=== PATIENT | female | born 1975 | race Caucasian/White ===

== ENCOUNTER → 2023-09-22 08:48 | Outpatient (REF) | payer OTHER, SELFPAY ==
[2023-09-22 10:42] LABS: % Basophils 0.6 % (0-2); % Eosinophils 1.7 % (0-6); % Immature Granulocytes 0.5 % (0-0.5); % Lymphocytes 24.8 % (20.5-51.1); % Monocytes 11.7 % (1.7-9.3); % Neutrophils 60.7 % (42.2-75.2); Absolute Eosinophils 0.1 10^3/uL (0-0.7); Absolute Lymphocytes 1.6 10^3/uL (1.2-3.4); Absolute Monocytes 0.8 10^3/uL (0.1-0.6); Absolute Neutrophils 3.9 10^3/uL (1.4-6.5); Hematocrit 36.8 % (37.0-47.0); Hemoglobin 12.7 g/dL (12.0-16.0); Mean Corp Hgb Conc. 34.5 g/dL (33.0-37.0); Mean Corpuscular Hgb 31.4 pg (27.0-31.0); Mean Corpuscular Volume 91.1 fL (81.0-99.0); Mean Platelet Volume 9.4 fL (7.4-10.4); Nucleated Red Blood Cells % 0 %; Platelet Count 255 10^3/uL (130-400); Red Blood Cell Count 4.04 10^6/uL (4.20-5.40); Red Cell Dist. Width 12.4 % (11.5-14.5); White Blood Cell Count 6.5 10^3/uL (4.8-10.8)
[2023-09-22 11:09] LABS: ALT (SGPT) 53 U/L (0-35); AST (SGOT) 53 U/L (14-36); Alkaline Phosphatase 43 U/L (38-126); Blood Urea Nitrogen 11 mg/dl (7-17); Calcium 9.5 mg/dl (8.4-10.2); Carbon Dioxide 27 mmol/L (22-30); Chloride 105 mmol/L (98-107); Glucose 87 mg/dl (70-99); Potassium 4.6 mmol/L (3.5-5.1); Sodium 136 mmol/L (135-145); Total Bilirubin 1.3 mg/dl (0.2-1.3); Total Protein 7.3 g/dl (6.3-8.2); eGFR > 60.00
== END ==
LOC: RAD 08:48
PROVIDERS: ATTENDING PHYSICIAN Nurse Practitioner Family; FAMILY PHYSICIAN Internal Medicine
DX: R10.31 Right lower quadrant pain (principal); N39.0 Urinary tract infection, site not specified; R10.9 Unspecified abdominal pain
CPT/HCPCS: 36415; 76770; 80053; 85025

== ENCOUNTER 2024-04-16 18:22 | Observation (INO) | payer OTHER, SELFPAY ==
[2024-04-16] VITALS (7 sets, daily range): BP systolic 84–106; BP diastolic 48–76; PULSE 87–108; O2SAT 100; BMI 24.4
--- NOTE | 2024-04-16 13:01 | ED.GENMED ---
History of Present Illness
<FABIÁN Navarro Last Filed: 04/16/24 18:32>
General
Chief Complaint: Abdominal Symptoms
Source: patient and spouse ( at bedside)
Exam Limitations: none
Time Seen by Provider: 04/16/24 12:40
Nursing documentation reviewed up to this point in time: agreed with
History of Present Illness
History of Present Illness:
Patient is a 48-year-old female with history hypothyroid presenting to the emergency department with dizziness and persistent vomiting since this morning. Patient states that when she woke up around 630 this morning she had severe dizziness.
Patient states she has been nonstop vomiting since. Patient states that she feels everything is spinning when she opens her eyes and this is worse with movement of her head. Patient denies any history of similar symptoms.
Patient denies any fever, abdominal pain, diarrhea/constipation. No urinary symptoms. No headache, neck pain, visual changes/double vision, ataxia, or dysarthria.
Patient has no personal history of vertigo although her mom does have a history of vertigo.
No sick contacts.
Past History
<FABIÁN Navarro Last Filed: 04/16/24 18:32>
Past History
ED Past Medical History: Hypothyroidism and Other (History of what sounds like hyperventilation syndrome episodic but states back to her college days per the patient)
ED Past Surgical History:
Social History
Tobacco: Non-smoker
Alcohol: Occasional
Personal:
Living: with family
Family History
Family History: Negative Diabetes, Hypertension, Early CAD, Asthma or Cancer
Review of Systems
<FABIÁN Navarro Last Filed: 04/16/24 18:32>
Review of Systems
Allergies reviewed?: Yes
All Other Systems: ROS reviewed and negative except as documented in HPI and ROS
Phy Exam
<FABIÁN Navarro Last Filed: 04/16/24 18:32>
Physical Exam
Physical Exam:
Vitals: Patient's vital signs are stable. Afebrile
General: Patient is actively retching on my initial examination.
Skin: Warm and dry, no rashes or lesions
Head: Normocephalic, atraumatic
Eyes: Sclera nonicteric. EOMs intact. No nystagmus.
Throat: Protecting airway
Neck: Normal ROM, no cervical spine tenderness, no meningismus
Cardiac: Mildly tachycardic, normal rhythm, no murmurs.
Pulm: Normal respiratory effort, no wheezes, rales, rhonchi heard on exam.
Abdomen: Abdomen soft. No abdominal tenderness. No abdominal tenderness.
Extremities: No evidence of cyanosis or edema. DP pulses palpable and equal bilaterally.
Neuro: AAOx3. CN II-XII intact. No focal neurologic deficits. Speech fluid. Steady gait.
Psychiatric: Normal affect.
Course
<Юлия Espino PA-C - Last Filed: 04/16/24 18:32>
Orders/Labs/Results
Orders:
Orders
04/16/24 12:51
0.9% Sodium Chloride 1000 ml [Nss] 1,000 ml IV BOLUS
Meclizine [Antivert] 25 mg PO NOW STA
04/16/24 12:55
Electrocardiogram (*1) Urgent
Reason for Study: QTc Monitoring
EKG- Treatment ONCE
04/16/24 13:26
Complete Blood Count/With Diff Urgent
Comprehensive Metabolic Panel Urgent
Lipase Urgent
TSH Reflex To Free T4 Urgent
04/16/24 13:56
Ondansetron Injectable [Zofran] 4 mg IV NOW STA
04/16/24 14:38
PT Consult [Pt Eval And Treat] Urgent
Treatment: Vestibular therapy
Activity Level: As Tolerated
04/16/24 15:37
0.9% Sodium Chloride 1000 ml [Nss] 1,000 ml IV BOLUS
Meclizine [Antivert] 25 mg PO NOW STA
04/16/24 17:40
NEUROLOGY CONSULT Routine
Consulting Provider: Danielito Brown
Was physician already notified: Yes
Reason for consult: dizziness, concern for posterior CVA
MR Brain Without Contrast Routine
Comment:
Reason For Exam: dizziness, concern for posterior CVA
Recent pill cam endoscopy?: No
04/16/24 17:53
Urine Drug Abuse Screen Stat
04/16/24 18:00
Admit/Transfer Patient As Directed
Co-Sign Provider:
Level of Care: Observation services
Assign to:: Telemetry
Physician / Group: Genia
Diagnosis: dizziness/vertigo
Reason for Telemetry: CVA/TIA
Date to Stop Telemetry: 04/19/24
Time to Stop Telemetry: 11:00
PRN Pain Medication Management As Directed
May give lesser potent ordered pain med per pt: Yes
preference::
Protocol:: Medication orders for pain may be administered in a
manner that supports deferring to patient preference
when the pt is:
- Requesting an ordered lesser potent pain medication.
Least to most potent pain medications are defined
as: acetaminophen < NSAID < tramadol < opioids
(morphine, oxycodone, hydromorphone).
- Requesting a lesser dose of the same medication IF
ORDERED.
- Requesting a less intrusive route of administration
if both routes are prescribed by the provider (PO <
IV).
04/16/24 18:01
Code Status As Directed
Resuscitation Status: Full Code
04/17/24 08:00
Orthostatic Vital Signs As Directed
Orthostatic VS Frequency: Daily
04/19/24 11:00
DC Protocol for Telemetry ONCE
Abnormal Lab Results
04/16/24
13:26
WBC 11.3 H 10^3/uL
(4.8-10.8)
Abs Immat Gran (auto) 0.1 H 10^3/uL
(0-0.05)
Absolute Neuts (auto) 9.9 H 10^3/uL
(1.4-6.5)
Absolute Lymphs (auto) 0.9 L 10^3/uL
(1.2-3.4)
Neutrophils % 87.7 H %
(42.2-75.2)
Lymphocytes % 7.9 L %
(20.5-51.1)
Carbon Dioxide 19 L mmol/L
(22-30)
Glucose 164 H mg/dl
(70-99)
Total Bilirubin 2.3 H mg/dl
(0.2-1.3)
04/16/24 13:26
04/16/24 13:26
Vital Signs
Initial and Last Documented VS:
Initial Vital Signs
Pulse Resp BP Pulse Ox
108 16 106/76 100
04/16/24 12:09 04/16/24 12:09 04/16/24 12:09 04/16/24 12:09
Last Documented Vital Signs
Pulse Resp BP Pulse Ox
88 16 90/60 100
04/16/24 15:44 04/16/24 15:44 04/16/24 16:34 04/16/24 15:44
<Marialuisa Garcia, DO - Last Filed: 04/16/24 17:28>
Orders/Labs/Results
Orders:
Orders
04/16/24 12:51
0.9% Sodium Chloride 1000 ml [Nss] 1,000 ml IV BOLUS
Meclizine [Antivert] 25 mg PO NOW STA
04/16/24 12:55
Electrocardiogram (*1) Urgent
Reason for Study: QTc Monitoring
EKG- Treatment ONCE
04/16/24 13:26
Complete Blood Count/With Diff Urgent
Comprehensive Metabolic Panel Urgent
Lipase Urgent
TSH Reflex To Free T4 Urgent
04/16/24 13:56
Ondansetron Injectable [Zofran] 4 mg IV NOW STA
04/16/24 14:38
PT Consult [Pt Eval And Treat] Urgent
Treatment: Vestibular therapy
Activity Level: As Tolerated
04/16/24 15:37
0.9% Sodium Chloride 1000 ml [Nss] 1,000 ml IV BOLUS
Meclizine [Antivert] 25 mg PO NOW STA
04/16/24 17:40
NEUROLOGY CONSULT Routine
Consulting Provider: Danielito Brown
Was physician already notified: Yes
Reason for consult: dizziness, concern for posterior CVA
MR Brain Without Contrast Routine
Comment:
Reason For Exam: dizziness, concern for posterior CVA
Recent pill cam endoscopy?: No
04/16/24 17:53
Urine Drug Abuse Screen Stat
04/16/24 18:00
Admit/Transfer Patient As Directed
Co-Sign Provider:
Level of Care: Observation services
Assign to:: Telemetry
Physician / Group: Genia
Diagnosis: dizziness/vertigo
Reason for Telemetry: CVA/TIA
Date to Stop Telemetry: 04/19/24
Time to Stop Telemetry: 11:00
PRN Pain Medication Management As Directed
May give lesser potent ordered pain med per pt: Yes
preference::
Protocol:: Medication orders for pain may be administered in a
manner that supports deferring to patient preference
when the pt is:
- Requesting an ordered lesser potent pain medication.
Least to most potent pain medications are defined
as: acetaminophen < NSAID < tramadol < opioids
(morphine, oxycodone, hydromorphone).
- Requesting a lesser dose of the same medication IF
ORDERED.
- Requesting a less intrusive route of administration
if both routes are prescribed by the provider (PO <
IV).
04/16/24 18:01
Code Status As Directed
Resuscitation Status: Full Code
04/17/24 08:00
Orthostatic Vital Signs As Directed
Orthostatic VS Frequency: Daily
04/19/24 11:00
DC Protocol for Telemetry ONCE
Abnormal Lab Results
04/16/24
13:26
WBC 11.3 H 10^3/uL
(4.8-10.8)
Abs Immat Gran (auto) 0.1 H 10^3/uL
(0-0.05)
Absolute Neuts (auto) 9.9 H 10^3/uL
(1.4-6.5)
Absolute Lymphs (auto) 0.9 L 10^3/uL
(1.2-3.4)
Neutrophils % 87.7 H %
(42.2-75.2)
Lymphocytes % 7.9 L %
(20.5-51.1)
Carbon Dioxide 19 L mmol/L
(22-30)
Glucose 164 H mg/dl
(70-99)
Total Bilirubin 2.3 H mg/dl
(0.2-1.3)
04/16/24 13:26
04/16/24 13:26
Vital Signs
Initial and Last Documented VS:
Initial Vital Signs
Pulse Resp BP Pulse Ox
108 16 106/76 100
04/16/24 12:09 04/16/24 12:09 04/16/24 12:09 04/16/24 12:09
Last Documented Vital Signs
Pulse Resp BP Pulse Ox
88 16 90/60 100
04/16/24 15:44 04/16/24 15:44 04/16/24 16:34 04/16/24 15:44
<Юлия Espino PA-C - Last Filed: 04/16/24 18:32>
MDM/Problems Addressed
Differential Diagnosis Includes:
Not limited to: BPPV, labyrinthitis, gastroenteritis, cholecystitis, appendicitis, doubt central process including CVA
MDM/Problems Addressed:
48-year-old female presenting with acute dizziness associated with nausea/vomiting since waking this morning. Symptoms positional in nature. No associated diplopia, dysarthria, ataxia, or other neurologic symptoms. Patient mildly tachycardic
although improved by my assessment. Exam as above. Patient without any neurologic deficits. No nystagmus. Cardio/pulmonary assessment unremarkable. Benign abdomen. Symptoms reproducible with Leland-Hallpike maneuver. Symptoms most consistent
with a peripheral process such as BPPV. No associated neurologic deficits. Low suspicion for central process. Patient was treated with IV fluids, meclizine, Zofran with improvement in symptoms. However�following PT assessment and Adrianna maneuver
patient became symptomatic once again. PT does agree that symptoms seem vertiginous/peripheral nature. Will repeat meclizine, IV fluids and reassess. Patient may require admission if symptoms persist
Chronic conditions affecting care:
Hypothyroid
Acute Exacerbation and/or Progression of Chronic Illness:
N/A
<Юлия Espino PA-C - Last Filed: 04/16/24 18:32>
*Pulse Oximetry
Patient hypoxic: no
*EKG
Interpreted by ED Provider?: Yes
EKG Intrepretation Date: 04/16/24
Interpretation: normal
*Sales Vice President Interpretation
Rate: normal
Interpretation: normal
Heart Rate: 86
Rhythm: sinus
*Critical Care Note
Total Time (30-74mins, 75-104mins- exclusive of procedures): Not Applicable
<Юлия Espino PA-C - Last Filed: 04/16/24 18:32>
Patient Management
Discussion with other providers: Hospitalist
Escalation/DeEscalation of care consider admission/obs:
Admit for symptomatic treatment/vestibular therapy
<Юлия Espino PA-C - Last Filed: 04/16/24 18:32>
Update Note
Update Note:
Update 5:27 PM: Into reassess patient at bedside. Patient overall improved although does have persistent nausea/dizziness. Patient will be admitted for continued treatment and PT vestibular therapy. Patient accepted to hospitalist service in
stable condition.
ED Attending Note
<Юлия Espino PA-C - Last Filed: 04/16/24 18:32>
-
Portions of this chart may have been created with voice recognition software.� Occasional wrong word or��sound alike� substitutions may have occurred due to the inherent limitations of voice recognition software.
<Marialuisa Garcia DO - Last Filed: 04/16/24 17:28>
ED Attending Note
Patient seen and examined by attending physician: Yes
I performed the substantive portion of visit, reviewed & personally made and approve the management plan that is documented in note by myself or DOUG.: Yes
I performed a history and physical exam of patient and discussed management with resident, I reviewed resident's note and agree with documented findings and plan of care.: Yes
ED Attending Note:
48-year-old female with history of hypothyroidism presenting to the emergency department for dizziness, nausea, vomiting. Patient reports she woke up with the symptoms, describes dizziness as room spinning. She has been unable to open her eyes to
2 symptoms. She tried Zofran that she had at home, however still had persistent vomiting. Denies focal weakness or numbness to her extremities. Denies any recent fall or trauma. Denies any history of vertigo, however does note that her mother
has vertigo. Denies recent fever or illness. Denies chest pain or difficulty breathing. Vital signs on arrival are significant for mild tachycardia.
On exam patient is lying comfortably, no acute distress, no active emesis, however was vomiting in triage prior to room placement. Benign cardiac, pulmonary, neurologic exam. Symptoms appear most consistent with BPPV. Plan for screening
laboratory analysis, EKG, and therapeutic treatment with meclizine, Zofran, fluids, Roman-Hallpike maneuver and plan for reassessment.
17:00-patient did initially have interval improvement of her symptoms, however physical therapy for vestibular therapy which seem to exacerbate her symptoms. Physical therapy in agreement that symptoms seem vertiginous and quality. Patient overall
improved, however continues to have significant dizziness, nausea. Plan for admission for continued therapy treatment, fall risk.
Discharge Plan
Departure
Patient Disposition: Admit
Date of Disposition: 04/16/24
Time of Disposition: 17:20
Presentation/result/management discussed w/ accepting MD/DO: Hospitalist
Discharge Problem:
Dizziness
Prescriptions:
No Action
Theragen Tablet
1 tab PO NOON
levothyroxine [Synthroid] 100 mcg tablet
100 mcg PO DAILY
cholecalciferol (vitamin D3) 25 mcg (1,000 unit) Tablet
25 mcg PO DAILY
Wegovy 1.7 mg/0.75 mL pen injector
1.7 mg SC SA
Referrals:
Julio Cesar Fuchs PA-C [Family Provider] -
Discharge Date and Time
Print Language: MAURITANIAN
[2024-04-16] MEDS: ANTIVERT 25 MG PO ×2 (13:27→15:41)
[2024-04-16] MEDS: NSS 1000 IV ×3 (13:27→20:23)
[2024-04-16 13:38] LABS: % Basophils 0.4 % (0-2); % Immature Granulocytes 0.5 % (0-0.5); % Lymphocytes 7.9 % (20.5-51.1); % Monocytes 3.5 % (1.7-9.3); % Neutrophils 87.7 % (42.2-75.2); Absolute Immature Granulocytes 0.1 10^3/uL (0-0.05); Absolute Lymphocytes 0.9 10^3/uL (1.2-3.4); Absolute Monocytes 0.4 10^3/uL (0.1-0.6); Absolute Neutrophils 9.9 10^3/uL (1.4-6.5); Hematocrit 37.9 % (37.0-47.0); Hemoglobin 13.3 g/dL (12.0-16.0); Mean Corp Hgb Conc. 35.1 g/dL (33.0-37.0); Mean Corpuscular Volume 88.3 fL (81.0-99.0); Mean Platelet Volume 8.8 fL (7.4-10.4); Nucleated Red Blood Cells % 0 %; Platelet Count 236 10^3/uL (130-400); Red Blood Cell Count 4.29 10^6/uL (4.20-5.40); Red Cell Dist. Width 12.5 % (11.5-14.5); White Blood Cell Count 11.3 10^3/uL (4.8-10.8)
[2024-04-16 14:00] LABS: ALT (SGPT) 20 U/L (0-35); AST (SGOT) 24 U/L (14-36); Albumin 4.4 g/dl (3.5-5.0); Alkaline Phosphatase 43 U/L (38-126); Blood Urea Nitrogen 13 mg/dl (7-17); Calcium 9.6 mg/dl (8.4-10.2); Carbon Dioxide 19 mmol/L (22-30); Chloride 105 mmol/L (98-107); Glucose 164 mg/dl (70-99); Lipase 106 U/L (23-300); Potassium 3.8 mmol/L (3.5-5.1); Sodium 139 mmol/L (135-145); Total Bilirubin 2.3 mg/dl (0.2-1.3); Total Protein 7.8 g/dl (6.3-8.2); eGFR > 60.00
[2024-04-16] MEDS: ZOFRAN 4 MG IV (14:01)
[2024-04-16 14:30] LABS: TSH Reflex To Free T4 3.45 uIU/ml (0.47-4.68)
--- NOTE | 2024-04-16 17:36 | HPS.HSE ---
Family Physician
-
Family Physician: Julio Cesar Fuchs PA-C
Chief Complaint
-
Dizziness and vomiting
History of Present Illness
48 y/o F with PMHx:
Hypothyroidism
Who presents with chief complaint of dizziness and vomiting. Patient reports that she woke at 630 this morning and had severe dizziness which she describes as room spinning even when her eyes were closed. She had multiple episodes of vomiting.
The dizziness/vertigo was worse with head movement and change in body position. Her drove her to the ER. When she was getting out of the car she was hyperventilating and felt all of her muscles kiera. Denies any other acute
complaints. She received meclizine and IV fluids in the ER. Symptoms have improved somewhat but have not resolved.
Medical History
Past Medical History
Past Medical History: Reports Hypothyroidism
Past Surgical History: Reports Other (N/A)
Social History
Tobacco: Non-smoker
Alcohol: Occasional
Drug: None
Family History
Family History: Not pertinent
Allergies / Home Medications
Allergies reflects when Allergies were last updated in [employer]
Home Medications with original date entered in [employer]
Allergy/Medication List:
Allergies
Allergy/AdvReac Type Severity Reaction Status Date / Time
NKA - No Known Allergies Allergy Unknown Uncoded 09/11/17 08:48
Home Medications
cholecalciferol (vitamin D3) 25 mcg (1,000 unit) tablet 25 mcg PO DAILY 04/16/24
levothyroxine 100 mcg tablet (Synthroid) 100 mcg PO DAILY 04/16/24
semaglutide (weight loss) 1.7 mg/0.75 mL subcutaneous pen injector (Wegovy) 1.7 mg SC SA 04/16/24
therapeutic multivitamin 1 tab PO NOON 04/16/24
Review of Systems
-
History Source: Patient
A 12 point ROS was completed and negative except as noted: Yes
Physical Exam
Vital Signs
Vital Signs
Pulse Resp BP Pulse Ox
88 16 90/60 100
04/16/24 15:44 04/16/24 15:44 04/16/24 16:34 04/16/24 15:44
Physical Exam
General: Other (.)
Laboratory Results
-
04/16/24 13:26
04/16/24 13:26
Laboratory Results
Total Bilirubin 2.3 mg/dl (0.2-1.3) H 04/16/24 13:26
AST 24 U/L (14-36) 04/16/24 13:26
ALT 20 U/L (0-35) 04/16/24 13:26
Alkaline Phosphatase 43 U/L (38-126) 04/16/24 13:26
Lipase 106 U/L (23-300) 04/16/24 13:26
Impression/Plan
-
Gen: NAD, AAOx3.
Eyes: EOMI, PERRLA, no scleral icterus.
Neck: supple.
CV: RRR, +S1/S2, no m/r/g.
Resp: CTAB, no rales, wheezes, or rhonchi.
Abd: +BS, soft, NT, ND
Skin: No rashes.
Neuro: CN 2-12 intact, non-focal.
Psych: Normal mood and affect.
Dizziness:
-likely peripheral and due to BPPV
-check MRI to ensure no posterior CVA
-tele
-neurochecks
-PT/OT
-IVFs
-meclizine/Valium PRN
-neuro c/s
-check orthostatic VS in AM
Hypothyroidism:
-cont Synthroid
FULL/Lovenox
--- NOTE | 2024-04-16 19:59 | PTCARENOTE ---
Pt arrived onto floor @1958. Pt AAOx3 and able to walk into room with minimal assistance. Pt with no complaints of pain or SOB at this time. Pt oriented to room and call sheffield; will continue to monitor.
[2024-04-17 03:31] VITALS: BP 90/58
[2024-04-17 04:14] VITALS: BP 91/67
[2024-04-17] MEDS: NSS 1000 IV (04:16)
[2024-04-17] MEDS: ANTIVERT 25 MG PO ×2 (04:16→09:25)
[2024-04-17] MEDS: SYNTHROID 100 MCG PO (04:16)
[2024-04-17 07:22] VITALS: BP 91/65
[2024-04-17 07:39] LABS: HDL Cholesterol 63 mg/dl; LDL Cholesterol, Calculated 76 mg/dl; Total Cholesterol 146 mg/dl (50-199); Triglyceride 38 mg/dl (10-149); Very Low Density Lipoprotein 7 mg/dl (0-30)
--- NOTE | 2024-04-17 08:38 | CON.NEURO4 ---
Addendum entered and electronically signed by Danielito Brown MD 04/17/24 11:03:
Studies reviewed.
I have personally examined the patient. I reviewed and agree with the TELEMARKETER's Note.
My addenda:
Awake, alert, interactive. No acute distress.
Speech intact.
Follows 2-step requests w/o difficulty. No tremor.
Extra-ocular movements grossly intact.
Facial movements full and symmetric. Hearing intact to normal conversational volume.
Normal UE movements bilaterally.
Neck: full ROM.
Chest: no dyspnea
Heart: no JVD
Ext: (-) Clubbing, (-) Cyanosis, (-) Edema
IMPRESSIONS/RECOMMENDATIONS:
Abrupt onset of vertigo, currently improved
Most likely secondary to benign paroxysmal positional vertigo as there was no obvious viral exposure producing symptoms
No indication at this time for MRI of the brain
Physical therapy and in particular vestibular therapy will be of benefit.
Provide meclizine 25 mg [id number]
D/W patient
Will continue to follow as needed.
Original Note:
Documented by User: Erika Alanis NP 04/17/24 10:44
Consultation - Neurology 4
-
CONSULTING PHYSICIAN: Danielito Brown MD
REFERRING PHYSICIAN: Hospitalists/Dr. Cormier
DICTATED BY: SANIA Rosa
DATE/TIME OF REQUEST: 04/16/24
DATE/TIME OF CONSULTATION: 04/17/24
Reason for Consultation: Dizziness
History of Present Illness:
This is a 48-year-old right-handed female who has presented to the hospital on 04/16/24 with report of severe dizziness and vomiting. Patient reports that when she woke up yesterday morning (04/16/24) at 0630 she suddenly developed a severe
spinning sensation, which she describes as the room spinning around her. This persisted and she proceeded to vomit for several hours, prompting her to come to the ER for evaluation. She reports that turning her head, sitting up, or movement in
general made her symptoms worse. If she laid still with her eyes clothes things were mildly improved. In the ER, she received meclizine and Zofran and reports that her symptoms improved afterward. Today (04/17/24), she reports feeling markedly
improved. If she turns her head she still notes a return of her spinning sensation for 1-2 minutes, but denies any further nausea/vomiting. She denies any headache, vision changes, speech/swallowing difficulty, numbness, weakness, chest pain,
palpitations, and shortness of breath. She denies any tinnitus, ear fullness, recent illness, or events similar to this in the past.
Past Medical History: Hypothyroidism, vitamin D deficiency, iron deficiency anemia
Surgical History: section x2, D&C, endometrial ablation
Family History: Reviewed and noncontributory.
Social History: Occasional alcohol. Denies tobacco and illicit drug use.
Allergies: No known allergies.
Home Medications: See below.
Review of Symptoms:
Patient denies any fever, headache, chest pain, shortness of breath, GI or symptoms.
�Per the HPI.�All systems are reviewed negative except above.
Physical Exam:
The patient is afebrile, abdomen is nondistended, breathing is unlabored, skin is warm and dry, no edema.
NIH Stroke Scale:
I performed the NIH stroke scale on the patient on 04/17/24 at 0845. The patient scored 0 points on the NIH stroke scale assessment, which were assigned as follows: See below.
Neurologic Examination:
The patient is awake, alert and oriented x 3. She is able to follow commands and answer questions appropriately. There is no aphasia or dysarthria. On cranial nerve assessment, pupils are 3 mm bilateral, round and reactive to light and
accommodation. Visual nelson are full. Extraocular movements are intact. No nystagmus. Facial sensations are intact and bilaterally symmetrical, there is no facial asymmetry. Hearing is intact bilaterally to normal conversation volume. Tongue
palate and uvula are midline. Sternocleidomastoid strengths are full bilaterally. Motor strengths are 5/5 bilateral upper and lower extremities on medical research [place] scale. There is no drift or involuntary movement noted. There was no
extinction noted on double simultaneous stimulation. Coordination is intact by finger to nose bilaterally.
Lab Results: See below.
Neuro Imaging: None.
Differentials for the patient's presentation include:
1. Benign paroxysmal positional vertigo (BPPV) likely producing dizziness, Roman Hallpike testing positive on the right side per physical therapy.
2. No resting nystagmus, recent illness, or hearing changes to be supportive of vestibular neuritis.
3. No concern for central source of dizziness.
Patient has the following risk factors for their symptoms: Positive Roman Hallpike- R
Recommendations:
-Continue meclizine PRN, increase hydration for symptom relief.
-Continue physical therapy. Patient should perform the self-Adrianna maneuver at least twice a day until symptoms resolve.
-No driving until symptoms resolve.
-Neurology will sign-off, please contact our service with any questions/concerns.
Discussed patient care with: Dr. Brown, the patient
Vital Signs and Labs
-
Vital Signs and Labs:
Vital Signs
Temp Pulse Resp BP Pulse Ox
98.3 F 83 20 91/65 100
04/17/24 07:22 04/17/24 07:22 04/17/24 07:22 04/17/24 07:22 04/17/24 07:22
Lab Results
04/16/24 13:26
04/16/24 13:26
Sodium 139 mmol/L (135-145) 04/16/24 13:26
Potassium 3.8 mmol/L (3.5-5.1) 04/16/24 13:26
BUN 13 mg/dl (7-17) 04/16/24 13:26
Glucose 164 mg/dl (70-99) H 04/16/24 13:26
Calcium 9.6 mg/dl (8.4-10.2) 04/16/24 13:26
LDL Cholesterol, Calc 76 mg/dl 04/17/24 06:42
Medications
-
Medications:
Generic Name Dose Route Start Last Admin
Trade Name Freq PRN Reason Stop Dose Admin
Acetaminophen 650 mg 04/16/24 19:54
Acetaminophen 650 Mg Rectal Suppository RECTAL 05/14/24 19:53
Q4HPRN PRN
WHITE, mild pain, or temp >100.4F
Acetaminophen 650 mg 04/16/24 19:54
Acetaminophen 325 Mg Tablet PO 05/14/24 19:53
Q4HPRN PRN
WHITE, mild pain, or temp >100.4F
Diazepam 2 mg 04/16/24 19:54
Diazepam 10 Mg/2 Ml Inj IV 05/14/24 19:53
Q6HPRN PRN
dizziness
Enoxaparin Sodium 40 mg 04/17/24 18:00
Enoxaparin Sodium 40 Mg/0.4 Ml Syringe SC 05/15/24 17:59
QPM ZACH
Sodium Chloride 1,000 mls @ 125 mls/hr 04/16/24 19:54 04/17/24 04:16
Nss IV 1,000 mls
.Q8H ZACH Administration
Levothyroxine Sodium 100 mcg 04/17/24 06:00 04/17/24 04:16
Levothyroxine 100 Mcg Tablet PO 05/15/24 05:59 100 mcg
DAILY @ 0600 ZACH Administration
Meclizine HCl 25 mg 04/17/24 16:00
Meclizine 25 Mg Tablet PO 05/15/24 15:59
Q8H ZACH
Sodium Chloride 0 flush 04/16/24 21:00
Sodium Chloride 0.9% (Flush) Syringe IV 05/14/24 20:59
PER PROTOCOL ZACH
NIH Stroke Score
Subsequent NIH Scale
Date of Subsequent NIH Scale: 04/17/24
Time of Subsequent NIH Scale: 08:45
NIH Stroke Score
Level of Consciousness: 0 - Alert
LOC Questions: 0-Answers both correctly
LOC Commands: 0-Performs both correctly
Best Horizontal Gaze: 0-Normal
Visual Nelson: 0=Normal, no visual loss
Facial Palsy: 0=Normal, symmetrical
Motor - Right Arm: 0=No drift 10 seconds
Motor - Left Arm: 0=No drift 10 seconds
Motor - Right Le-No drift 5 seconds
Motor - Left Le-No drift 5 seconds
Limb Ataxia: 0-Absent
Sensation: 0-Normal
Best Language: 0-No aphasia
Dysarthria: 0-Normal
Extinction and Inattention: 0-No abnormality
Total Score:: 0

Documented by User: Danielito Brown MD 04/17/24 11:02
NIH Stroke Score
NIH Stroke Score
Total Score:: 0
--- NOTE | 2024-04-17 09:38 | W.PN.HOSP.TC ---
Today's Communication/Plan
-
discharge home today
Assessment / Plan
Assessment / Plan
48yo F with PMH hypothyroidism who presented to ED 04/16/24 for dizziness and vomiting.
BPPV
- PT/OT eval +BPPV, consistent with symptoms- discussed at length with patient this AM
- Orthostatics negative
- No further vomiting, able to PO hydrate and hold down fluids/food
- No other concerning neurologic signs/symptoms. Per neuro, no need for MRI this hospitalization. Await further recommendations
- Stable for discharge home with outpatient PCP follow up
Hypothyroidism
- Continue synthroid
Mild leukocytosis- WBC 11.3 on admission
Elevated total bilirubin- Tbili 2.3 on admission
- Afebrile. No symptoms of infection or biliary disease
- Recommend repeat blood work with PCP outpatient
Code status: Full
VTE ppx: lovenox
Diet: Regular
Dispo planning: Home today
Anticipated Discharge: Today
Subjective/Interval History
-
Date of Service: April 17, 2024
No acute events overnight. Says she is feeling 'much better' than yesterday. Some dizziness this AM but no nausea, able to hold down PO fluids, crackers. Denies chest pain, shortness of breath, nausea, vomiting, diarrhea, constipation. Tolerating PO
diet. Ambulating without assistance. Overall feels ready and would like to go home today.
Objective Data
-
Labs:
Laboratory Results
04/16/24 13:26
04/16/24 13:26
AST 24 U/L (14-36) 04/16/24 13:26
ALT 20 U/L (0-35) 04/16/24 13:26
Vital Signs:
Vital Signs
Temp Pulse Resp BP Pulse Ox
98.3 F 83 20 91/65 100
04/17/24 07:22 04/17/24 07:22 04/17/24 07:22 04/17/24 07:22 04/17/24 07:22
I&O
04/16/24 04/17/24 04/18/24
06:59 06:59 06:59
Intake Total 1200 / 1200
Balance 1200 / 1200
Review of Systems
-
History Source: Patient (see subjective)
Physical Exam
-
General: Well Developed, Well Nourished, No Apparent Distress, Comfortable and Conversant
HEENT: Normocephalic and Atraumatic
Respiratory: Clear to Auscultation (anterior lung rhoades) and Non Labored Respirations
Cardiac: Regular Rhythm and S1/S2
GI: Soft, Nontender, Nondistended and Normal Bowel Sounds
Musculoskeletal: No Edema
Skin: Warm and Dry
Neuro: Awake, Alert, Oriented, AO x 3 and Nonfocal/Grossly Intact
Psych: Calm and Intact Judgement/Insight
Data Reviewed
-
Labs: Labs Reviewed by me and Discussed with Physician
--- NOTE | 2024-04-17 09:46 | PTOTSP ---
pt currently demonstrates ability to complete simple ADLs, functional transfers, ambulation with no assistance. no acute OT needs identified at this time, will sign off.
--- NOTE | 2024-04-17 09:55 | W.PN.UPDATE ---
Update Note
Progress Note Update
I saw and evaluated the patient. I reviewed the resident�s note and agree with findings and plan as documented in the resident�s note.
Gen: remains NAD, AAOx3.
Eyes: EOMI, PERRLA, no scleral icterus.
Neck: supple.
CV: remains RRR, +S1/S2, no m/r/g.
Resp: remains CTAB, no rales, wheezes, or rhonchi.
Skin: No rashes.
Neuro: CN 2-12 intact, non-focal.
Psych: Normal mood and affect.
Dizziness/Vertigo:
-likely peripheral and due to BPPV
-s/p IVFs
-Symptoms improved with vestibular PT
-Case discussed with neurology over [facility]. As per Dr. Brown, 'textbook BPPV.' Dr. Brown canceled MRI brain and ASA and has cleared the pt for discharge.
Hypothyroidism:
-cont Synthroid
FULL/Lovenox
Medically cleared for discharge.
Total time spent on d/c = 31 min. This included today's physical exam, progress note, review of laboratory and diagnostic data, preparation of discharge documents and prescriptions, and discussions about the pt's hospital course and discharge plan
with the patient and other medical insurance coder involved in the patient's care.
[2024-04-17 11:35] VITALS: BP 92/57
--- NOTE | 2024-04-17 13:37 | W.DCSUMMARY ---
Addendum entered and electronically signed by Nicho Cormier MD 04/18/24 07:52:
Read, reviewed, and agree. See same day progress note for additional details.
Original Note:
Discharge Summary
Discharge Data
Date of Admission: 04/16/24
Date of Discharge: 04/17/24
-
Pending Results: No
Hospital Course
Discharging Physician : Dr. Proctor, Dr. Cormier
Disposition : Home
Primary care physician : Unknown; referral provided
Principal Discharge diagnosis : Benign paroxysmal positional vertigo
Chronic Discharge diagnosis : Hypothyroidism
Hospital Course : Presented to ED 04/16/24 for dizziness. Neurology and PT/OT were consulted, and she was found to have BPPV. On day of discharge she was stable, and she was discharged home. Incidentally, she had mild elevated total bilirubin
and mild leukocytosis with no symptoms of infection or biliary disease, for which she should repeat blood work outpatient with PCP.
Important imaging findings : N/A
Procedure findings : N/A
Discharge Plan
-
Patient Disposition: Home (Routine Discharge)
Discharge Diagnosis/Procedures: Benign paroxysmal positional vertigo
Condition: Good
Diet: No restrictions
Activity: No restrictions
Driving Restrictions: As prior to admission
Bathing Restrictions: OK to Shower
Blood Work: Repeat CBC and CMP with your PCP
Instructions: Vertigo (a type of dizziness), Vestibular Exercises
Referrals:
Reed Bello DO [Non-Admitting Privileges] -
Caron Wood MD, Resident [Family Practice Resident Year2] - in less than 1 week (Call to schedule new patient appointment with a Primary Care Provider within 1 week of hospital discharge)
Julio Cesar Fuchs PA-C [Family Provider] -
Additional Discharge Medication Instructions: New medications:
- Meclizine 25mg: take 1 tablet every 8 hours as needed for dizziness
Continue your other medications as you were taking or to hospitalization.
Ask your Primary Care Provider if you need refills.
Prescriptions:
New
meclizine 25 mg Tablet
25 mg PO Q8H PRN (Reason: dizziness) Qty: 30 0RF
Continued
therapeutic multivitamin Tablet
1 tab PO NOON
levothyroxine [Synthroid] 100 mcg tablet
100 mcg PO DAILY
cholecalciferol (vitamin D3) 25 mcg (1,000 unit) Tablet
25 mcg PO DAILY
Wegovy 1.7 mg/0.75 mL pen injector
1.7 mg SC SA
Discharge Orders:
Discharge Patient (As Directed); Ordered 04/17/24
Ordered By: Delma Proctor
Discharge Date and Time
Discharge Date/Time: 04/17/24 14:09
Print Language: GUINEAN
--- NOTE | 2024-04-17 13:57 | CM ---
Patient was admitted under OBS, OBS letter signed and placed on chart, wrapper caser reviewed patient's chart and met with patient and patient lives with her spouse in a 2 story home, with steps to enter and to 2nd floor, patient is independent with
adl's and ambulation, no dme, home today no needs.
PCP: Dr. Kunz
Pharmacy: [facility]
Plan; Home when stable, no needs.
[2024-04-17 15:00] VITALS: BP 141/81
== END 2024-04-17 14:09 | disposition home or self-care (01) ==
LOC: 4 WEST ACU 18:22
PROVIDERS: Physician Assistant; Student in an Organized Health Care Education/Training Program; ADMITTING PHYSICIAN Internal Medicine; CONSULT PHYSICIAN Psychiatry & Neurology Neurology; EMERGENCY PHYSICIAN Student in an Organized Health Care Education/Training Program; FAMILY PHYSICIAN Physician Assistant
DX: H81.10 Benign paroxysmal vertigo, unspecified ear (principal); E03.9 Hypothyroidism, unspecified; D72.829 Elevated white blood cell count, unspecified; Z79.890 Hormone replacement therapy
CPT/HCPCS: 80053; 80061; 83690; 84443; 85025; 93005; 96361; 96374; 97112; 97165; 99285; G0378

== ENCOUNTER 2024-04-22 14:08 | Outpatient (RCR) | payer OTHER, SELFPAY | END 2024-04-22 23:59 | disposition home or self-care (01) | LOC: RPT 14:08 | PROVIDERS: ATTENDING PHYSICIAN Student in an Organized Health Care Education/Training Program | DX: R42 Dizziness and giddiness (principal); H81.10 Benign paroxysmal vertigo, unspecified ear; Z73.6 Limitation of activities due to disability; R51.9 Headache, unspecified; W22.09XD Striking against other stationary object, subsequent encounter | CPT/HCPCS: 97112; 97163; 97530 ==